=== PATIENT | female | born 1955 | race Hispanic/Latino ===

== ENCOUNTER → 2018-05-08 | Outpatient (CLI) | payer OTHER ==
[~2018-05-08] MED LIST: OMEP40CA PO
== END | disposition home or self-care (01) ==
LOC: RAH 14:42
PROVIDERS: ATTEND Internal Medicine
DX: N60.22 Fibroadenosis of left breast (principal); K21.9 Gastro-esophageal reflux disease without esophagitis
CPT/HCPCS: 77066

== ENCOUNTER → 2019-05-06 | Outpatient (CLI) | payer OTHER | END | disposition home or self-care (01) | LOC: RAH 08:45 | PROVIDERS: ATTEND Internal Medicine | DX: Z12.31 Encounter for screening mammogram for malignant neoplasm of breast (principal) | CPT/HCPCS: 77067 ==

== ENCOUNTER → 2020-09-05 | Outpatient (CLI) | payer MEDICARE, OTHER | END | disposition home or self-care (01) | LOC: RAH 07:59 | PROVIDERS: ATTEND Internal Medicine | DX: Z12.31 Encounter for screening mammogram for malignant neoplasm of breast (principal) | CPT/HCPCS: 77067 ==

== ENCOUNTER → 2021-09-06 | Outpatient (CLI) | payer MEDICARE, OTHER | END | disposition home or self-care (01) | LOC: RAH 10:19 | PROVIDERS: ATTEND Internal Medicine | DX: Z12.31 Encounter for screening mammogram for malignant neoplasm of breast (principal) | CPT/HCPCS: 77067 ==

== ENCOUNTER → 2022-09-12 | Outpatient (CLI) | payer MEDICARE, OTHER | END | disposition home or self-care (01) | LOC: RAH 10:00 | PROVIDERS: ATTEND Internal Medicine | DX: Z12.31 Encounter for screening mammogram for malignant neoplasm of breast (principal) | CPT/HCPCS: 77067 ==

== ENCOUNTER → 2023-09-13 | Outpatient (CLI) | payer MEDICARE, OTHER | END | disposition home or self-care (01) | LOC: RAH 08:45 | PROVIDERS: ATTEND Internal Medicine | DX: Z12.31 Encounter for screening mammogram for malignant neoplasm of breast (principal); N63.13 Unspecified lump in the right breast, lower outer quadrant | CPT/HCPCS: 77067 ==

== ENCOUNTER → 2023-10-02 | Outpatient (CLI) | payer MEDICARE, OTHER | END | disposition home or self-care (01) | LOC: RAH 07:43 | PROVIDERS: ATTEND Internal Medicine | DX: N60.01 Solitary cyst of right breast (principal); R92.331 Mammographic heterogeneous density, right breast; R92.8 Other abnormal and inconclusive findings on diagnostic imaging of breast | CPT/HCPCS: 76641; 77065 ==

== ENCOUNTER → 2024-10-07 | Outpatient (CLI) | payer OTHER ==
--- NOTE | 2024-10-08 10:35 | HMCIMG ---
MAMMO SCREENING BILATERAL HISTORY: Screening mammogram. COMPARISON: 10/02/2023 TECHNIQUE: Bilateral screening mammogram with CAD was performed with craniocaudal and mediolateral oblique projections. FINDINGS: The breasts are heterogeneous dense, which may obscure small masses. Round nodular density is seen in the right lower of the right breast which has increased size from previous study. This was found to be a cyst on a previous ultrasound study. However, due to increase in size, ultrasound follow-up is recommended. There is no other evidence of a dominant mass, or suspicious microcalcification. There is no evidence of nipple retraction or skin thickening. IMPRESSION: 1. Round nodular density is seen in the right lower of the right breast which has increased size from previous study. This was found to be a cyst on a previous ultrasound study. However, due to increase in size, ultrasound follow-up is recommended. Patient was entered into a reminder system with a target due date for their next mammogram. BI-RADS: CATEGORY 0: INCOMPLETE. NEED ADDITIONAL IMAGING EVALUATION Diagnostic mammogram is recommended. Recommend monthly self breast exam as well as annual clinical examination. A negative x-ray should not delay biopsy if a dominant or clinically suspicious mass is present, since 8-10% of cancers are not identified by mammography. Dense breasts particularly, may obscure an underlying neoplasm. Some of these may be detected clinically and therefore, clinical examination is an essential part of breast evaluation.
== END | disposition home or self-care (01) ==
LOC: RAH 14:24
PROVIDERS: ATTEND Internal Medicine
DX: Z12.31 Encounter for screening mammogram for malignant neoplasm of breast (principal); N63.10 Unspecified lump in the right breast, unspecified quadrant; R92.333 Mammographic heterogeneous density, bilateral breasts
CPT/HCPCS: 77067

== ENCOUNTER → 2024-10-28 | Outpatient (CLI) | payer OTHER ==
--- NOTE | 2024-10-28 11:10 | HMCIMG ---
PROCEDURE: [facility] UNILATERAL, MAMMO DX UNILATERAL RIGHT, US BREAST BILATERAL HISTORY: Abnormal mammogram COMPARISON: 10/07/2024 TECHNIQUE: Bilateral digital diagnostic mammogram with CAD was performed. No additional views were obtained. Tomosynthesis. Images were obtained. Bilateral breast ultrasound study was also obtained. FINDINGS: The breasts are heterogeneously dense, which may obscure small masses. Nodular density is seen in the lower outer quadrant of the right breast consistent with breast ultrasound study. There is no evidence of a dominant mass, or suspicious microcalcification. There is no evidence of nipple retraction or skin thickening. Bilateral breast ultrasound study shows bilateral scattered breast cysts with the largest on the right at 7:00 measuring 13 x 11 x 12 mm and on the left at 3:00 measuring 7 x 8 x 8 right axillary lymph node is seen measuring 11 x 6 x 4 mm. Left axillary lymph node is seen measuring 2.1 x 0.7 x 1.7 cm. IMPRESSION: 1. Bilateral breast cysts. BI-RADS: CATEGORY 2: BENIGN FINDINGS Recommend monthly self breast exam as well as annual clinical examination. A negative x-ray should not delay biopsy if a dominant or clinically suspicious mass is present, since 8-10% of cancers are not identified by mammography. Dense breasts particularly, may obscure an underlying neoplasm. Some of these may be detected clinically and therefore, clinical examination is an essential part of breast evaluation.
== END | disposition home or self-care (01) ==
LOC: RAH 07:36
PROVIDERS: ATTEND Internal Medicine
DX: N60.01 Solitary cyst of right breast (principal); N60.02 Solitary cyst of left breast; N63.13 Unspecified lump in the right breast, lower outer quadrant; R92.333 Mammographic heterogeneous density, bilateral breasts; R92.8 Other abnormal and inconclusive findings on diagnostic imaging of breast
CPT/HCPCS: 76641; 77065; G0279; 77061